=== PATIENT | male | born 1990 | race Caucasian/White ===

== ENCOUNTER 2020-11-22 17:19 | Emergency (ER) | payer SELFPAY ==
[~2020-11-22] VITALS: Ht 167.6 cm; Wt 163.3 kg
[2020-11-22 17:23] VITALS: BP 151/88
--- NOTE | 2020-11-22 18:29 | NUR ---
PATIENT AMBULATED TO BED 08 WITH STEADY GAIT.
--- NOTE | 2020-11-22 18:41 | NUR ---
30 Y/O MALE C/O BLOOD IN URINE X3 DAYS, DENIES ANY DISCOMFORT OR PENILE PAIN OR DISCHARGE. DENIES ANY DYSURIA. PT STATES HE IS HAVING A MILD DULL PAIN IN HIS BILATERAL LOWER BACK. PT TOOK ADVIL WITH NO RELIEF. PT DENIES PAIN AT THIS TIME. DENIES N/V. PT A/O X4 WITH EVEN AND UNLABORED RESPIRATIONS. PT LAYING IN BED WITH BED IN LOWEST POSITION, BRAKES LOCKED, X1 SIDERAIL UP. NO PMH NKDA
--- NOTE | 2020-11-22 18:54 | NUR ---
DR DAVE AT BEDSIDE
[2020-11-22 19:15] LABS: APPEARANCE,URINE CLEAR (CLEAR); BILIRUBIN,URINE NEGATIVE (NEGATIVE); BLOOD, URINE 3+ (NEGATIVE); COLOR,URINE RED (YELLOW); LEUKOCYTE ESTERASE ,URINE TRACE (NEGATIVE); NITRITE, URINE NEGATIVE (NEGATIVE); PH,URINE 6.5 (5.0-9.0); UGLUCOSE NEGATIVE (NEGATIVE)
--- NOTE | 2020-11-22 19:16 | NUR ---
REPORT GIVEN TO GRAY LOMBARDI, TRANSFER OF CARE AT THIS TIME
[2020-11-22 19:31] LABS: RBC,URINE >100 /HPF (0-5); WBC,URINE 0-5 /HPF (0-5)
[2020-11-22] MEDS ORDERED: TAMS0.4C96 PO (19:56)
[2020-11-22 20:07] VITALS: BP 122/76
--- NOTE | 2020-11-22 20:07 | NUR ---
Patient discharged with v/s stable. Written and verbal after care instructions given and explained. Patient alert, oriented and verbalized understanding of instructions. Ambulatory with steady gait. All questions addressed prior to discharge. ID band removed. Patient advised to follow up with PMD. Rx of FLOMAX given. Patient educated on indication of medication including possible reaction and side effects. Opportunity to ask questions provided and answered.
== END 2020-11-22 20:07 | disposition home or self-care (01) ==
LOC: MED 17:19
DX: R31.9 Hematuria, unspecified (principal); Z87.442 Personal history of urinary calculi
CPT/HCPCS: 36415; 81001; 87086; 99283

== ENCOUNTER 2021-10-07 14:20 | Emergency (ER) | payer BC ==
[~2021-10-07] VITALS: Ht 167.6 cm; Wt 119.3 kg
[~2021-10-07 14:20] MED LIST: TAMS0.4C96 PO
[2021-10-07 14:32] VITALS: BP 164/103
--- NOTE | 2021-10-07 14:58 | NUR ---
Pt ambulated to bed 11.
[2021-10-07] MEDS ORDERED: KETOROLAC 30 MG/ML VIAL IM ONE (15:10)
--- NOTE | 2021-10-07 16:30 | NUR ---
pt c/o left flank pain since 1200 today while at work. denies any urinary complaints. c/o 510 pain at this time.
[2021-10-07 16:41] LABS: BILIRUBIN,URINE 1+ (NEGATIVE); BLOOD, URINE 3+ (NEGATIVE); LEUKOCYTE ESTERASE ,URINE TRACE (NEGATIVE); NITRITE, URINE POSITIVE (NEGATIVE); UGLUCOSE NEGATIVE (NEGATIVE)
[2021-10-07 16:43] LABS: APPEARANCE,URINE HAZY (CLEAR)
[2021-10-07 16:56] LABS: RBC,URINE TOO NUMEROUS TO COUN /HPF (0-5)
[2021-10-07 16:57] LABS: CALCIUM OXALATE CRYSTALS,UR 0-10 /HPF (None Seen); COLOR,URINE AMBER (YELLOW); WBC,URINE 0-5 /HPF (0-5); YEAST,URINE Few /HPF (None Seen)
[2021-10-07 17:28] LABS: BASOPHILS # (AUTO) 0.1 K/uL (0.00-0.22); BASOPHILS % (AUTO) 0.5 % (0.0-2.0); EOSINOPHILS % (AUTO) 0.2 % (0.0-4.0); HEMATOCRIT 47.6 % (36-52); HEMOGLOBIN 15.9 g/dL (12.0-18.0); LYMPHOCYTES # (AUTO) 1.6 K/uL (2.0-11.5); LYMPHOCYTES % (AUTO) 11.9 % (20.5-51.1); MEAN CORPUSCULAR HEMOGLOBIN 28 pg (27-31); MEAN CORPUSCULAR HGB CONC 34 g/dL (33-37); MEAN CORPUSCULAR VOLUME 83.7 fL (80-94); MONOCYTES # (AUTO) 0.7 K/uL (0.8-1.0); MONOCYTES % (AUTO) 5.5 % (1.7-9.3); NEUTROPHILS # (AUTO) 10.9 K/uL (1.8-7.7); NEUTROPHILS % (AUTO) 81.9 % (42.2-75.2); PLATELET COUNT (AUTO) 304 K/uL (140-450); RED BLOOD CELL COUNT(AUTO) 5.68 MIL/uL (4.20-6.10); RED CELL DISTRIBUTION WIDTH 14.4 % (11.6-13.7); WHITE BLOOD COUNT (AUTO) 13.3 K/uL (4.8-10.8)
[2021-10-07 17:45] LABS: ANION GAP 11.2 (8-16); CARBON DIOXIDE 28.5 mmol/L (21-32); CREATININE 0.9 mg/dL (0.6-1.3); POTASSIUM 4.7 mmol/L (3.5-5.1); TOTAL BILIRUBIN 0.5 mg/dL (0.0-1.0)
[2021-10-07] MEDS ORDERED: SULFAMETH/TRIMETH DS 800/160MG 1 TAB PO ONE (18:20)
[2021-10-07] MEDS ORDERED: SULF-59 PO (18:26)
[2021-10-07] MEDS ORDERED: KETO10TA2 PO (18:26)
[2021-10-07 18:43] VITALS: BP 124/70
--- NOTE | 2021-10-07 18:43 | NUR ---
Patient discharged with v/s stable. Written and verbal after care instructions given and explained. Patient verbalized understanding. Ambulatory with steady gait. All questions addressed prior to discharge. Advised to follow up with PMD.
== END 2021-10-07 18:43 | disposition home or self-care (01) ==
LOC: MED 14:20
DX: N13.2 Hydronephrosis with renal and ureteral calculous obstruction (principal); N39.0 Urinary tract infection, site not specified; Z87.442 Personal history of urinary calculi; Z79.899 Other long term (current) drug therapy
CPT/HCPCS: 36415; 74176; 80053; 81001; 83690; 85025; 96372; 99284; J1885

== ENCOUNTER 2022-04-08 06:54 | Emergency (ER) | payer BC ==
[~2022-04-08] VITALS: Ht 167.6 cm; Wt 122.9 kg
[~2022-04-08 06:54] MED LIST changes: +KETO10TA2 PO; +SULF-59 PO
[2022-04-08 06:57] VITALS: BP 155/118
--- NOTE | 2022-04-08 07:02 | NUR ---
Patient ambulated to bed 2.
--- NOTE | 2022-04-08 07:04 | NUR ---
Dr. Yu examining patient.
[2022-04-08] MEDS ORDERED: KETOROLAC 30 MG/ML VIAL IVP ONE (07:10)
[2022-04-08] MEDS ORDERED: ONDANSETRON 4 MG/2 ML VIAL IVP ONE (07:15)
--- NOTE | 2022-04-08 07:30 | NUR ---
Note undone in ED - 04/08/22 at 0746 by [id number] Report given to SAMRA Cano. SAMRA Cano verbalized understanding of report. SAMRA Cano stated she "will complete assessment and have IV started." SAMRA Cano has no further questions concerning endorsement of care. Addendum: 04/08/22 at 0731 by [email or web address] Amendment undone in [facility] - 04/08/22 at 0746 by [id number] Report given to SAMRA Cano. SAMRA Cano verbalized understanding of report. SAMRA Cano stated she "will complete assessment, have IV started and give medications." SAMRA Cano has no further questions concerning endorsement of care.
--- NOTE | 2022-04-08 07:31 | NUR ---
Report given to AM shift nurse Rachael. AM shift nurse Rachael verbalized understanding of report. AM shift nurse Rachael has no further questions concerning endorsement of care.
--- NOTE | 2022-04-08 07:31 | NUR ---
REPORT RECEIVED FROM LARA LOMBARDI. ASSUMED CARE AT THIS TIME
--- NOTE | 2022-04-08 07:34 | NUR ---
PATIENT MOVED TO BED 8
[2022-04-08 07:52] LABS: APPEARANCE,URINE CLOUDY (CLEAR); BILIRUBIN,URINE NEGATIVE (NEGATIVE); BLOOD, URINE 3+ (NEGATIVE); COLOR,URINE RED (YELLOW); LEUKOCYTE ESTERASE ,URINE TRACE (NEGATIVE); NITRITE, URINE POSITIVE (NEGATIVE); PH,URINE 6.5 (5.0-9.0); UGLUCOSE NEGATIVE (NEGATIVE)
--- NOTE | 2022-04-08 07:55 | NUR ---
31YO MALE PT C/O INTERMITTENT SHARP 7/10 R FLANK PAIN X3AM THIS MORNING. PT STATES SUDDEN ONSET W/ MILD RELIEF AFTER TAKING TYLENOL . CURRENT PAIN AT 3/10. REPORTS HX OF KIDNEY STONES IN OCTOBER WITH S/S THAT SELF RELIEVED. STATES EPISODES OF NAUSEA, DENIES AT THIS TIME. DENIES DYSURIA, V/D, CHEST PAIN OR SOB. PT AAOX4, NO VISIBLE DISTRESS, RESPIRATIONS EVEN AND UNLABORED. HOB RAISED PER COMFORT, BED AT LOWEST POSITION, BED RAIL UPX1. HX: KIDNEY STONES NKA
[2022-04-08 08:09] LABS: ANION GAP 12.8 (8-16); CARBON DIOXIDE 25.9 mmol/L (21-32); POTASSIUM 3.7 mmol/L (3.5-5.1)
[2022-04-08 08:25] LABS: RBC,URINE TOO NUMEROUS TO COUN /HPF (0-5)
[2022-04-08 08:37] LABS: BASOPHILS % (AUTO) 0.3 % (0.0-2.0); EOSINOPHILS # (AUTO) 0.1 K/uL (0-0.4); EOSINOPHILS % (AUTO) 1.3 % (0.0-4.0); HEMATOCRIT 46.3 % (36-52); HEMOGLOBIN 15.7 g/dL (12.0-18.0); LYMPHOCYTES % (AUTO) 21.5 % (20.5-51.1); MEAN CORPUSCULAR HEMOGLOBIN 28 pg (27-31); MEAN CORPUSCULAR HGB CONC 34 g/dL (33-37); MEAN CORPUSCULAR VOLUME 83.5 fL (80-94); MONOCYTES # (AUTO) 0.7 K/uL (0.8-1.0); MONOCYTES % (AUTO) 7.1 % (1.7-9.3); NEUTROPHILS # (AUTO) 6.6 K/uL (1.8-7.7); NEUTROPHILS % (AUTO) 69.8 % (42.2-75.2); PLATELET COUNT (AUTO) 271 K/uL (140-450); RED BLOOD CELL COUNT(AUTO) 5.54 MIL/uL (4.20-6.10); RED CELL DISTRIBUTION WIDTH 13.7 % (11.6-13.7); WHITE BLOOD COUNT (AUTO) 9.4 K/uL (4.8-10.8)
[2022-04-08] MEDS ORDERED: CEPH-588 PO (09:15)
[2022-04-08] MEDS ORDERED: TAMS0.4C96 PO (09:15)
[2022-04-08] MEDS ORDERED: ONDA-188 PO (09:15)
[2022-04-08] MEDS ORDERED: NAPR-1704 PO (09:15)
[2022-04-08 09:26] VITALS: BP 128/87
--- NOTE | 2022-04-08 09:26 | NUR ---
Patient discharged with v/s stable. Written and verbal after care instructions FOR RENAL COLI, UTI given and explained. Patient alert, oriented and verbalized understanding of instructions. Ambulatory with steady gait. All questions addressed prior to discharge. ID band removed. Patient advised to follow up with PMD. Rx of KELFEX,NAPROXEN, ZOFRAN AND FLOMAX given. Opportunity to ask questions provided and answered.
--- NOTE | 2022-04-08 09:30 | NUR ---
The patient's care was reviewed and supervised by Yaneli Chua RN.
== END 2022-04-08 09:26 | disposition home or self-care (01) ==
LOC: MED 06:54
DX: N20.1 Calculus of ureter (principal); N39.0 Urinary tract infection, site not specified; F17.210 Nicotine dependence, cigarettes, uncomplicated; Z79.899 Other long term (current) drug therapy; Z87.442 Personal history of urinary calculi
CPT/HCPCS: 36415; 80048; 81001; 85025; 87086; 96374; 99283; J1885; J2405

== ENCOUNTER 2022-09-17 04:45 | Emergency (ER) | payer BC ==
[~2022-09-17] VITALS: Ht 167.6 cm; Wt 124.7 kg
[~2022-09-17 04:45] MED LIST changes: +CEPH-588 PO; +NAPR-1704 PO; +ONDA-188 PO
[2022-09-17 04:52] VITALS: BP 133/68
--- NOTE | 2022-09-17 04:56 | NUR ---
TO BED 4 FROM TRIAGE
--- NOTE | 2022-09-17 05:00 | NUR ---
DR. JALLOH AT BEDSIDE
--- NOTE | 2022-09-17 05:00 | NUR ---
PT COMPLAINING OF PRODUCTIVE COUGH X2 DAYS ADMITS TO SICK CONTACT +DIARRHEA -N/V/FEVER WENT TO URGENT CARE AND FELT "THEY DIDN'T EVEN DO ANYTHING" NAD NOTED AT THIS TIME. RESP E/U. SKIN WDL. VSS. HX KIDNEY STONES
[2022-09-17] MEDS ORDERED: PRED20TA5 PO (05:05)
[2022-09-17] MEDS ORDERED: ALBU0.0912 IH (05:05)
[2022-09-17] MEDS ORDERED: AZIT250T4 PO (05:05)
[2022-09-17] MEDS ORDERED: predniSONE 20 MG TAB PO ONE (05:05)
[2022-09-17 05:16] VITALS: BP 130/69
== END 2022-09-17 05:16 | disposition home or self-care (01) ==
LOC: MED 04:45
DX: J20.9 Acute bronchitis, unspecified (principal); N20.0 Calculus of kidney
CPT/HCPCS: 99283; J7512